=== PATIENT | male | born 1965 | race Caucasian/White ===

== ENCOUNTER 2024-08-12 19:40 | Emergency (ER) | payer OTHER, SELFPAY ==
[2024-08-12 19:41] VITALS: BP 166/91; PULSE 102; RESP 18; TEMP 36.6; O2SAT 97
[2024-08-12 20:21] VITALS: BP 132/95; PULSE 89; RESP 16; O2SAT 97
--- NOTE | 2024-08-12 21:06 | ED.WOUNDLAC ---
HPI - Wound/Laceration General Chief Complaint: Wound/Laceration Stated Complaint: lac to right thumb Time Seen by Provider: 08/12/24 20:40 History of Present Illness HPI narrative: 59 y/o M presents to the emergency department for a skin avulsion to his right thumb that occurred prior to arrival. Patient states he was cutting an onion on a mandoline and accidentally cut his finger. He is on Eliquis for prior DVT. Last Tdap unknown. Related Data Allergies Allergy/AdvReac Type Severity Reaction Status Date / Time No Known Allergies Allergy Verified 08/12/24 20:21 Review of Systems Review of Systems: All systems reviewed & are unremarkable except as noted in HPI and below Exam Narrative: GENERAL: Well-appearing, well-nourished, and in no acute distress. HEAD: Normocephalic, atraumatic. EYES: EOMI. ENT: Nares clear, no rhinorrhea or epistaxis. Mucous membranes moist. NECK: Supple. CHEST: Clear to auscultation. No respiratory distress. HEART: Regular rate and rhythm. No murmur heard. Normal peripheral pulses. EXTREMITIES: Normal range of motion. No edema. SKIN: Skin avulsion to the right 1st distal phalanx with active bleeding, no deep structures or foreign bodies visualized. Full active and passive range of motion of thumb. Cap refill less than 2 NEURO: No focal deficits. 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 Patient accidentally cut his right thumb while cutting an onion on a mandoline. Vitals with elevated blood pressure, otherwise unremarkable. Exam is significant for school avulsion to the right 1st distal phalanx with active bleeding. Finger tourniquet placed and skin glue applied over the skin avulsion to provide a sealant and hemostasis. Hemostasis successful. Tetanus updated. Discussed wound care and return precautions. He is agreeable with the plan verbalized understanding. Discharged in stable condition. Discharge Plan Discharge Clinical Impression: Avulsion of skin Patient Disposition: Home, Self-Care Condition: Stable Instructions: Antibiotic Form, Skin Avulsion (ED) Additional Instructions: You were evaluated in the emergency department for a skin avulsion. We were able to stop the bleeding with skin glue. Please leave the bandage on for 24 hours and gently change the dressing once daily or sooner if the dressing becomes saturated. Return to the emergency department if you develop uncontrollable bleeding, fever, surrounding redness or drainage, or other concerning symptoms. Please follow-up with your primary care provider. Patient Language: [place]ian Follow-up/Referrals: PHYSICIAN NOT ON STAFF,NONSTAFF [Non-Staff] -
[2024-08-12] MEDS: TETANUS,DIPHTHERIA,AC PERTUSSIS ADULT (0.5 ML) BOOSTRIX IM (21:07)
== END 2024-08-12 21:54 | disposition home or self-care (01) ==
PROVIDERS: Emergency Provider Physician Assistant
DX: S61.001A Unspecified open wound of right thumb without damage to nail, initial encounter (principal); Z23 Encounter for immunization; Z86.718 Personal history of other venous thrombosis and embolism; Z79.01 Long term (current) use of anticoagulants; W27.4XXA Contact with kitchen utensil, initial encounter; Y93.G1 Activity, food preparation and clean up
CPT/HCPCS: 12001; 90471; 90715; 99282